=== PATIENT | female | born 1975 | race Caucasian/White ===

== ENCOUNTER 2016-07-11 16:45 | Inpatient (IN) | payer MEDICAID, OTHER ==
[~2016-07-11] VITALS: Ht 160 cm; Wt 98.9 kg
[2016-07-11] MEDS ORDERED: LR 1,000 ML IV SCH (17:12)
[2016-07-11] MEDS ORDERED: TERBUTALINE SULFATE 1 MG/ML VIAL SUBCUT ONE ×2 (17:15→18:45)
[2016-07-11] MEDS ORDERED: OXYTOCIN/NORMAL SALINE 1,000 ML IV SCH ×2 (18:34→20:11)
[2016-07-11] MEDS ORDERED: LR 500 ML IV ONE (18:34)
[2016-07-11] MEDS ORDERED: NALBUPHINE HCL 10 MG/ML AMP IVP PRN (18:45)
[2016-07-11] MEDS ORDERED: AMPICILLIN SODIUM 2 GM in NS 100 ML IV SCH (18:45)
[2016-07-11 19:24] LABS: BASOPHILS % (AUTO) 0.2 % (0.0-2.0); EOSINOPHILS # (AUTO) 0.1 K/uL (0.0-0.4); EOSINOPHILS % (AUTO) 0.7 % (0.0-4.0); HEMATOCRIT 30.8 % (36-48); HEMOGLOBIN 10.1 g/dL (12.0-16.0); LYMPHOCYTES # (AUTO) 2.2 K/uL (1.0-5.5); MEAN CORPUSCULAR HEMOGLOBIN 24 pg (27-31); MEAN CORPUSCULAR HGB CONC 33 % (32-36); MEAN CORPUSCULAR VOLUME 74 fL (79.0-98.0); MONOCYTES # (AUTO) 0.7 K/uL (0.0-1.0); MONOCYTES % (AUTO) 5.8 % (1.7-9.3); NEUTROPHILS # (AUTO) 9.2 K/uL (1.8-7.7); NEUTROPHILS % (AUTO) 75.3 % (40.0-70.0); PLATELET COUNT (AUTO) 259 K/uL (130-430); RED BLOOD CELL COUNT(AUTO) 4.18 MIL/uL (4.2-6.2); RED CELL DISTRIBUTION WIDTH 15.3 % (9.0-15.0); WHITE BLOOD COUNT (AUTO) 12.2 K/uL (4.8-10.8)
[2016-07-11] MEDS ORDERED: OXYTOCIN/NORMAL SALINE 1,000 ML IV ONE (20:11)
[2016-07-11] MEDS ORDERED: DOCUSATE SODIUM 100 MG CAPSULE PO PRN (20:15)
[2016-07-11] MEDS ORDERED: HYDROcodone/ACETAMIN 5-325 MG TAB (NORCO/ VICODIN) PO PRN ×2 (20:15)
[2016-07-11] MEDS ORDERED: DERMOPLAST SPRAY TP PRN (20:15)
[2016-07-11] MEDS ORDERED: GLYCERIN/WITCH HAZEL (TUCKS PADS) TP PRN (20:15)
[2016-07-11] MEDS ORDERED: METHYLERGONOVINE MALEATE 0.2 MG TABLET PO PRN (20:15)
[2016-07-11] MEDS ORDERED: LANOLIN 7 GM OINT. TP PRN (20:15)
[2016-07-11] MEDS ORDERED: OXYCODONE/ACETAMINOPHEN 5-325 TABLET PO PRN (20:15)
[2016-07-11] MEDS ORDERED: MEASLES,MUMPS&RUBELLA VACC/PF 12500 UNIT/0.5 ML VIAL SUBQ PRN (20:15)
[2016-07-11] MEDS ORDERED: TEMAZEPAM 15 MG CAPSULE PO PRN (21:00)
[2016-07-11] MEDS: IBUPROFEN 600 MG TABLET PO SCH (23:45)
[2016-07-12] MEDS: IBUPROFEN 600 MG TABLET PO SCH ×2 (06:10→12:00)
[2016-07-12 06:53] LABS: HEMATOCRIT 27.4 % (36-48); HEMOGLOBIN 8.8 g/dL (12.0-16.0)
[2016-07-12] MEDS ORDERED: LIDOCAINE PF 1% 30ML(POUR BTL) INJ ONE (15:00)
== END 2016-07-12 20:30 | disposition home or self-care (01) | DRG 560 ==
LOC: SPU 16:45 → OBSVTOIN 18:20
PROVIDERS: ADMIT Obstetrics & Gynecology; ATTEND Obstetrics & Gynecology
PROC: 10E0XZZ Delivery of Products of Conception, External Approach (ICD-10-PCS; principal; 2016-07-11)
PROC: 0KQM0ZZ Repair Perineum Muscle, Open Approach (ICD-10-PCS; 2016-07-11)
DX: O09.523 Supervision of elderly multigravida, third trimester (principal); O70.1 Second degree perineal laceration during delivery; Z37.0 Single live birth; Z3A.38 38 weeks gestation of pregnancy
CPT/HCPCS: 36415; 76815; 85018-TC; 85025; 86592; 86886; 86900; 86901; G0378; J0290; J2001; J2590; J3105